=== PATIENT | female | born 1930 | race Caucasian/White ===

== ENCOUNTER 2017-11-16 08:11 | Emergency (ER) | payer OTHER, MEDICARE ==
[2017-11-16 08:26] VITALS: RESP 18; O2SAT 97
[2017-11-16] MEDS ORDERED: BENZONATATE 100 MG CAP PO ONE (08:28)
--- NOTE | 2017-11-16 08:32 | EDPHY ---
H & P Time Seen by Provider: 11/16/17 08:17 HPI/ROS: HPI Cough and congestion. 87-year-old female by private vehicle with her daughter. They are from [facility]. The patient came down to the [place] area from [place] on Tuesday. Tuesday late morning she stated that she started developing a dry cough with chest congestion and nasal congestion productive of clear rhinorrhea. The symptoms have persisted and worsened since this time. She reports that when she lays flat she coughs more. She is more comfortable sleeping at night in more of an upright position. She denies high fever. She reports she has had some muscle aches and joint aches in her hands and her legs. She thinks this may just be due to walking around [place] and walking up her stairs at her home in [place]. ROS: Constitutional: No fever, no chills. No weakness. Eyes: No discharge. No changes in vision. ENT: No sore throat. As above. Respiratory: As above. No shortness of breath. Cardiac: No chest pain, no palpitations. Gastrointestinal: No abdominal pain, no vomiting, no diarrhea. Genitourinary: No hematuria. No dysuria or increased frequency with urination. Musculoskeletal: No back pain. No neck pain. As above. Skin: No rashes. Neurological: No headache. No focal weakness or altered sensation. Past medical history: Hypertension, macular degeneration. Social history: Nonsmoker. No alcohol. Here with her daughter. Physical Exam: General Appearance: Alert, pleasant elderly female, no distress. This patient is responding to questions appropriately and in full sentences. This patient appears well-hydrated and well-nourished. Eyes: Pupils equal and round no pallor or injection. No lid edema, erythema or injection. ENT, Mouth: Mucous membranes are moist. The pharyngeal tissues are unremarkable. No edema or swelling. No asymmetry suggestive of abscess. No erythema or exudates. Respiratory: There are no retractions, lungs are clear to auscultation with good air movement bilaterally. No tachypnea. No rhonchi. No crackles. No wheezing. Cardiovascular: Regular rate and rhythm. No murmur. Neurological: Motor sensory function is grossly intact. Cranial nerves are normal. Gait is normal. Skin: Warm and dry, no rashes. Musculoskeletal: Neck is supple and nontender. Extremities are symmetrical. All joints range without pain or impingement. Psychiatric: No agitation. No depression. Database: EKG: Imaging: Chest x-ray PA and lateral; the cardiac mediastinal silhouette is unremarkable. No evidence of infiltrate or pneumothorax. Bronchitis/diffuse airway disease. No other acute cardiopulmonary disease process noted. Interpreted by me. Procedures: Emergency department course: Vital signs reviewed and are normal. This patient appears well. Her presentation is consistent with bronchitis, likely viral etiology. Chest x-ray will be obtained. She will be given Tessalon parole for cough. I will also check her for influenza. 9:00 a.m., patient positive for influenza A. Given recent recommendations and her age she will be started on Tamiflu. She was given 75 mg in the emergency department. She otherwise looks well. I do not feel she requires admission at this time. She and her daughter feel comfortable being discharged. I will prescribe Tamiflu as well as Tessalon parole. I have also discussed using over- the-counter cough and cold medications. She can easily return to the emergency department should her condition worsen. Return to emergency department precautions were thoroughly reviewed with her. Follow-up was discussed. All of her questions were answered. The patient was discharged home in good condition with her daughter. Differential Diagnosis: The differential diagnosis on this patient includes but is not limited to viral bronchitis, influenza, upper respiratory infection. Pneumonia, CHF, serious bacterial infection unlikely. This represents a partial list of diagnoses considered. These considerations are based on history, physical exam, past history, reassessment and diagnostic testing. Smoking Status: Former smoker Constitutional: Initial Vital Signs Temperature (C) 36.1 C 11/16/17 08:23 Heart Rate 88 11/16/17 08:23 Respiratory Rate 18 11/16/17 08:23 Blood Pressure 135/79 H 11/16/17 08:23 O2 Sat (%) 97 11/16/17 08:23 O2 Delivery Mode Room Air Allergies/Adverse Reactions: Penicillins Allergy (Verified 11/16/17 08:27) Home Medications: Medication Instructions Recorded Benzonatate [Tessalon Pearles] 100 mg PO TID #12 cap 11/16/17 Oseltamivir Phosphate [Tamiflu 75 75 mg PO BID #9 cap 11/16/17 mg (*)] Medical Decision Making - Data Points Laboratory Results: 11/16/17 08:35 Influenza A,B Rapid POSITIVE FOR FLU A H (NEGATIVE) Medications Given: Discontinued Medications Benzonatate (Tessalon Pearles) 200 mg PO EDNOW ONE Stop: 11/16/17 08:29 Last Admin: 11/16/17 08:33 Dose: 200 mg Oseltamivir Phosphate (Tamiflu) 75 mg PO EDNOW ONE Stop: 11/16/17 09:01 Last Admin: 11/16/17 09:08 Dose: 75 mg Departure - Departure Disposition: Home, Routine, Self-Care Clinical Impression: Acute bronchitis, Influenza A Condition: Good Instructions: Influenza (ED), Acute Bronchitis (ED) Additional Instructions: Read and follow provided instructions. Bacterial antibiotic administration is not warranted at this time. Your bronchitis is secondary to influenza. We will treat you with antiviral medication. Follow-up with your primary care physician in 1-2 days for re-evaluation. Take medication as prescribed for cough and treatment of influenza. You can also use [id number] cough and cold medication as directed such as Dimetapp , NyQuil and Robitussin. Return to the emergency department for worsening symptoms, worsening cough, high fever, difficulty breathing or other serious concerns. Referrals: NONE *PRIMARY CARE P,. [Primary Care Provider] - As per Instructions Prescriptions: Benzonatate [Tessalon Pearles] 100 mg PO TID #12 cap Oseltamivir Phosphate [Tamiflu 75 mg (*)] 75 mg PO BID #9 cap
[2017-11-16] MEDS ORDERED: OSELTAMIVIR PHOSPHATE 75 MG CAP PO ONE (09:00)
[2017-11-16 09:30] VITALS: PULSE 78; TEMP 98
[2017-11-16 12:23] VITALS: BP 137/62
== END 2017-11-16 09:28 | disposition home or self-care (01) ==
LOC: CED 08:11
DX: J20.9 Acute bronchitis, unspecified (principal); J10.1 Influenza due to other identified influenza virus with other respiratory manifestations; I10 Essential (primary) hypertension; Z87.891 Personal history of nicotine dependence
CPT/HCPCS: 71046-PO; 87400-PO